=== PATIENT | female | born 1995 | race Caucasian/White ===

== ENCOUNTER 2020-07-08 11:29 | Outpatient (CLI) | payer OTHER, SELFPAY ==
[2020-07-10 16:31] LABS: Hepatitis C Viral RNA PCR <15 IU/mL
== END 2020-07-08 11:30 | disposition home or self-care (01) ==
PROVIDERS: Visit Provider Obstetrics & Gynecology
DX: Z34.92 Encounter for supervision of normal pregnancy, unspecified, second trimester (principal); Z3A.27 27 weeks gestation of pregnancy
CPT/HCPCS: 36415; 87522

== ENCOUNTER 2020-08-05 11:27 | Outpatient (CLI) | payer OTHER, SELFPAY ==
[2020-08-07 16:03] LABS: Hepatitis C RNA, Quant PCR <15 IU/mL
== END 2020-08-05 11:28 | disposition home or self-care (01) ==
LOC: ANHLAB 11:28
PROVIDERS: Visit Provider Obstetrics & Gynecology
DX: R76.8 Other specified abnormal immunological findings in serum (principal)
CPT/HCPCS: 36415; 87522

== ENCOUNTER 2020-08-26 10:43 | Inpatient (IN) | payer OTHER, SELFPAY ==
[2020-08-26] VITALS (68 sets, daily range): BP systolic 120–160; BP diastolic 66–133; PULSE 75–197; RESP 15–20; TEMP 36.4–36.6; O2SAT 97–100; BMI 34.0
--- NOTE | 2020-08-26 10:27 | WPDANESEPP ---
Anes - Eval Pre Procedure Procedure: Operation Date: 09/15/20 09:00 Proposed Procedures p Repeat Section - Miki Blakely MD Date/Time: 08/26/20 10:27 Surgeon: Reddy Preop Diagnosis: Oligohydramnios Pre Op Diagnosis: C Section Patient Data Age: 25 Gender: F Height: Weight: Allergies Allergy/AdvReac Type Severity Reaction Status Date / Time No Known Allergies Allergy Verified 08/24/20 10:49 Home Medications Medication Instructions Recorded Confirmed Type prenat.vits,nicky,aqg-febj-jgjjx 1 tablet PO DAILY 02/24/20 08/19/20 History aspirin 81 mg chewable tablet 81 mg PO DAILY 04/27/20 08/19/20 History Patient hx anesthesia problems: none Family hx anesthesia problems: none PMFSH Past Medical History Medical History Hx of drug abuse Oligohydramnios Surgical History Surgical History History of section Previous section Family History Family History Father Diabetes mellitus Pre-diabetic Grandparent Cerebrovascular accident Father Hypertension Mother Migraines Seizures Social History Social History Smoking status: Never smoker Smoking end date: 10/02/18 Substance use: never Substance use type: former substance user and marijuana Gender identity (if verbalized by the patient): Female Spiritual care concerns: No Exam Day of Procedure 08/26/20 10:27 Patient weight: overweight Heart: regular rate and rhythm Lungs: clear to auscultation Airway: Mallampati scale class II Neurological: alert and oriented
[2020-08-26 12:20] LABS: Basophils Percent Auto 0.2 % (0.2-1.2); Eosinophils Absolute Auto 0.2 K/mm3 (0-0.3); Eosinophils Percent Auto 1.4 % (0-4.4); Hematocrit 38.1 % (37.0-47.0); Hemoglobin 12.8 g/dL (12.0-15.0); Immature Granulocyte Absolute 0.18 K/mm3 (0.00-0.031); Immature Granulocyte Percent A 1.5 % (0-0.5); Lymphocytes Absolute Auto 1.41 K/mm3 (0.9-3.2); Lymphocytes Percent Auto 11.8 % (18.3-44.2); Mean Corpuscular HGB Conc 33.6 g/dl (32-36); Mean Corpuscular Hemoglobin 31.2 pg (26-34); Mean Corpuscular Volume 92.9 fl (80-100); Mean Platelet Volume 10.2 fl (7.4-10.4); Monocytes Absolute Auto 0.8 K/mm3 (0.1-0.6); Monocytes Percent Auto 6.3 % (2.6-8.5); Neutrophils Absolute Auto 9.4 K/mm3 (1.3-6.7); Neutrophils Percent Auto 78.8 % (45.5-73.1); Platelet Count Result 183 k/mm3 (150-375); Red Cell Distribution Width 13.2 % (11.5-14.5); White Blood Count 11.9 K/mm3 (4.5-10.0)
--- NOTE | 2020-08-26 12:26 | PM.IMHP ---
H&P: HPI History of Present Illness Date/Time: 08/26/20 12:26 Chief Complaint: Oligohydramnios Narrative: Rissa Holguin is a 25 year old female at 37 1 day with oligohydramnios. Prior cesearean section. Recommended for delivery due to oligohydramnios. PNC significant for oligohyramnios at 08/12/20 which had ultrasound for size less than dates. Her subsequent ultrasound was normal LAURA on 08/19/20. Today she was getting the surveillance testing due to history of oligo and was found to be oligohydramnios and recommended for delivery. History positive hep c ab, neg for C antibody first and third trimester. Short interval . History of gestational hypertension with prior . She was on baby aspirin until 36 weeks. No gestational hypertension during this . Labs reveiwed. GBS neg. She was previously scheduled for repeat ceserean section which she wanted at 40 weeks. Review of Systems Review of Systems: All systems reviewed & are unremarkable except as noted in HPI and below Constitutional: Constitutional: Reports no additional constitutional complaints and Denies headache(s) Eyes: Eyes: Denies spots in vision ENT: Reports system reviewed and no additional complaints, except as documented and Denies headache(s) Cardiovascular: Cardiovascular: Denies chest pain and Denies dyspnea Respiratory: Respiratory: Denies dyspnea Gastrointestinal: Gastrointestinal: Reports no additional gastrointestinal complaints Genitourinary: Genitourinary: Reports amenorrhea Musculoskeletal: Musculoskeletal: Reports no additional musculoskeletal complaints Integumentary/Breasts: Skin/Breast: Denies breast mass and Denies rash Neurologic: Denies headache(s) Psychiatric: Psychiatric: Reports no additional psychiatric complaints [facility] Past Medical History Medical History Hx of drug abuse Oligohydramnios Surgical History Surgical History History of section Previous section Family History Family History Father Diabetes mellitus Pre-diabetic Grandparent Cerebrovascular accident Father Hypertension Mother Migraines Seizures Social History Social History Smoking status: Former smoker Tobacco type: cigarettes Second hand tobacco smoke exposure: No Smoking end date: 10/02/18 Substance use: never Substance use type: former substance user and marijuana Gender identity (if verbalized by the patient): Female Spiritual care concerns: No Meds Home Medications and Allergies Home Medications Medication Instructions Recorded Confirmed Type prenat.vits,nicky,dnx-vwvf-vvjhq 1 tablet PO DAILY 02/24/20 08/19/20 History aspirin 81 mg chewable tablet 81 mg PO DAILY 04/27/20 08/19/20 History Allergies Allergy/AdvReac Type Severity Reaction Status Date / Time No Known Allergies Allergy Verified 08/24/20 10:49 Vital Signs Vital Signs - 24 hr 08/26/20 10:54 08/26/20 10:55 08/26/20 10:59 Pulse Rate 115 H Blood Pressure 128/85 Pulse Oximetry 99 98 08/26/20 11:01 08/26/20 11:04 08/26/20 11:09 Pulse Rate 101 H Blood Pressure 124/83 Pulse Oximetry 98 99 08/26/20 11:14 08/26/20 11:16 Pulse Rate 120 H Blood Pressure 133/87 Pulse Oximetry 100 Exam Const: General: no acute distress Eyes: General: appearance normal, both eyes and all related structures Resp: Effort & Inspection: normal respiratory effort Cardio: Rate: regular rate GI: Other: Gravid no fundal tenderness no right upper quadrant pain Skin: General skin exam: no rashes or lesions noted Neuro: Cognition (Neuro): normal cognition Extrem: General: normal to inspection Psych: Mental Status: mental status grossly normal H&P: Resul
--- NOTE | 2020-08-26 12:28 | WPDHPUPDATE1 ---
History and Physical Update Update Date/Time: 08/26/20 12:28 History and Physical has been reviewed, including an updated exam of the patient. There are NO changes in the patient's condition. Risks, benefits, and alternatives have been discussed and questions answered. Patient agrees to proceed with procedure.
[2020-08-26] MEDS: ceFAZolin 2 GM/D5W 50 ML 2 GM/50 ML BAG IVPB (12:35)
[2020-08-26] MEDS: OXYTOCIN 30 UNITS/NS 500 ML 30 UNITS/500 ML BAG 125 UNITS IV CONT (15:06)
[2020-08-26] MEDS: KETOROLAC 30 MG/ML VIAL (*BKC) IV PUSH (15:59)
--- NOTE | 2020-08-26 16:30 | OBPPTRN ---
Patient transferred to post room # 281 via stretcher and transferred to bed via maxi air without difficulty. Support person present. Oriented to unit, room, information board, rooming in, admission packet and security measures. Patient verbalizes understanding. PT introductions made and plan of care discussed per post op c section, pain management, breast feeding and daily care activities. Welcome packet reviewed and discussed. no barriers to learning present. both fob and pt were recipients of the instructions. PT received instructions via discussion and one to one instructions.
--- NOTE | 2020-08-26 16:56 | PM.PROC ---
Procedure Note - Detailed Date of procedure: 08/26/20 Pre-op diagnosis: C Section 1. Oligohydramnios 2. Elective repeat cesearean section. Post-op diagnosis: same Procedure performed: Repeat low transverse cesearean section Description of procedure: After informed consent was obtained patient was taken to the operating room and adequate spinal anesthesia was administered. She was placed in supine position and prepped and draped in sterile fashion. heart tones were auscultated prior to sterile draping. Attention was turned to the abdomen and a Pfannenstiel skin incision was made along her prior Pfannenstiel scar. The subcutaneous tissue was dissected with scalpel and cautery. The fascia was incised in the midline stented bilaterally with Kenyon scissors. The fascia was from rectus muscle superiorly and inferiorly bluntly and sharply. Scar tissue of the abdominal muscles to the fascia was lysed with Kenyon scissors. The midline was identified the midline was entered and the peritoneum was entered with metzenbaum scissors. The pelvic organs were visualized. The lower uterine segment and vesico-uterine peritoneum was visualized. The lower uterine segment was noted to be thin. It was intact. A bladder was dissected from the lower uterine segment. A low-transverse uterine incision was made and was extended bluntly. The amniotic cavity was entered. Clear fluid was noted. The incision was extended bluntly and the head was delivered and the rest the infant was delivered. There was noted to be a loose nuchal cord, manually reduced. The was vigorously crying upon delivery. The cord was doubly clamped and cut and the infant was handed to nursery staff in attendance. Cord segment was obtained for cord gases. Cord blood was obtained. The placenta was removed manually. The uterine cavity was sponge curetted. The uterus was noted to have good tone. The uterus was exteriorized the incision of the uterus was closed in a running locking fashion with 0 Vicryl and a 2nd umbricating stitch of 0 Vicryl. Hemostasis was noted. The posterior cul-de-sac was irrigated. Uterus was placed back into the abdomen. The paracolic gutters were irrigated the uterine incision was inspected again and noted to be hemostatic. A thick band of scar tissue was noted on the right mid uterus to adominal wall and this was cauterized from the abdominal wall. Hemostasis noted. Interceed adhesion barrier was placed at the lower uterine segment and anterior uterus. The omentum was placed over the site. The peritoneum was approximated in the midline with several sutures of [id number]-[id number] of 3 O Vicryl. The fascia was closed in a running fashion with 0 Vicryl with 2 sutures. Hemostasis was noted. The subcutaneous tissue was irrigated. The skin incision was closed with 4 O Vicryl on a Michael needle. Dermabond was placed. Hemostasis was noted. The uterus was firm at -1 umbilicus. The EBL was 650 cc. Sponge count was correct x3. The patient tolerated procedure well and was taken to recovery in stable condition. Anesthesia: spinal Surgeon: Miki Blakely MD Urine output (mL): 100 Drains: No Packing: No Pathology: none sent Complications: No immediate complications Condition: stable Disposition: floor (Recovery) Findings: male infant 6lbs 1oz, normal uterus fallopian tubes and ovaries.
[2020-08-26] MEDS: SIMETHICONE 80 MG TAB.CHEW PO (20:41)
[2020-08-26] MEDS: HYDROcodone/acetaminophen (*CRX) 5-325 MG TABLET 1 TAB PO (20:42)
[2020-08-26] MEDS: IBUPROFEN 600 MG TABLET PO (20:43)
[2020-08-27] VITALS: BP 125/64; PULSE 97; RESP 20; TEMP 36.8; O2SAT 98
[2020-08-27] MEDS: IBUPROFEN 600 MG TABLET PO ×3 (03:04→18:01)
[2020-08-27] MEDS: HYDROcodone/acetaminophen (*CRX) 5-325 MG TABLET 1 TAB PO ×4 (03:04→18:01)
[2020-08-27 03:26] VITALS: BP 111/63; PULSE 84; RESP 18; TEMP 36.6; O2SAT 99
[2020-08-27 03:29] VITALS: RESP 18; O2SAT 99
[2020-08-27 05:27] LABS: Basophils Percent Auto 0.3 % (0.2-1.2); Eosinophils Absolute Auto 0.2 K/mm3 (0-0.3); Eosinophils Percent Auto 2.2 % (0-4.4); Hematocrit 30.8 % (37.0-47.0); Hemoglobin 10.3 g/dL (12.0-15.0); Immature Granulocyte Absolute 0.15 K/mm3 (0.00-0.031); Immature Granulocyte Percent A 1.4 % (0-0.5); Lymphocytes Absolute Auto 1.92 K/mm3 (0.9-3.2); Lymphocytes Percent Auto 17.5 % (18.3-44.2); Mean Corpuscular HGB Conc 33.4 g/dl (32-36); Mean Corpuscular Hemoglobin 30.9 pg (26-34); Mean Corpuscular Volume 92.5 fl (80-100); Mean Platelet Volume 10.6 fl (7.4-10.4); Monocytes Percent Auto 8.7 % (2.6-8.5); Neutrophils Absolute Auto 7.7 K/mm3 (1.3-6.7); Neutrophils Percent Auto 69.9 % (45.5-73.1); Platelet Count Result 156 k/mm3 (150-375); Red Blood Count 3.33 M/mm3 (4.2-5.4); Red Cell Distribution Width 13.2 % (11.5-14.5)
[2020-08-27 06:40] VITALS: BP 118/77; PULSE 87; RESP 16; TEMP 36.3; O2SAT 96
[2020-08-27 06:50] LABS: Rapid Plasma Reagin Non-Reactive (NonReactive)
[2020-08-27] MEDS: DOCUSATE SODIUM 100 MG CAPSULE PO ×2 (07:00→18:01)
[2020-08-27] MEDS: MULTIVIT/MIN/PREN/FOL AC/IRON TABLET 1 TAB PO (07:01)
--- NOTE | 2020-08-27 09:10 | PC.NURSE ---
Mother called out for assist with feeding. Consulted with patient, reports has been sleepy with weak attempts and supplementation each feeding. Infant is 37 weeks, discussed how early may be sleepy the first few days. Mother states she breastfed first child without issues. Reviewed infant feeding cues, frequencies, duration of feedings, feeding elimination flow sheet, and signs of adequate intake. Demonstrated stimulation techniques to wake for feeding. Assisted with to breast. Reviewed positioning/alignment in cross cradle, holding breast in U hold and guided asymmetrical latch on. Infant was able to latch correctly within a few attempts. Infant nursed eagerly, with steady draws and frequent swallowing noted. Reviewed signs of a correct latch, effective nursing and suck swallow ratio. was able to maintain latch. Mother reported tenderness at times, infant had slipped to shallow latch. Demonstrated how to adjust latch more deeply while feeding. Mother quickly reports she can feel is latched more deeply and has minimal tenderness. Suggested to stimulate infant while feeding to keep awake and nursing effectively for increased stimulation and increased intake. Instructed mother to call out for RN assistance if she is unable to latch infant for feeding or she has discomfort with nursing. Instructed feeding should be initiated three hours from start of last feeding or if feeding cues are noted before. Mother voiced understanding of information shared.
--- NOTE | 2020-08-27 09:39 | P.PNOB_ITS ---
OB - PN: Subj Subjective Date/time seen: 08/27/20 09:39 She states adequate pain control. Decreasing lochia. She has ambulated to restroom without problems. Tolerating regular diet this morning. No leg pain. OB - PN: Obj Data Labs CBC & Chem 7: 08/27/20 04:00 Labs: Laboratory Results - last 24 hr 08/26/20 08/26/20 08/26/20 11:59 11:59 11:59 WBC 11.9 H RBC 4.10 L Hgb 12.8 Hct 38.1 MCV 92.9 MCH 31.2 MCHC 33.6 RDW 13.2 Plt Count 183 MPV 10.2 Immature Gran % (Auto) 1.5 H Neut % (Auto) 78.8 H Lymph % (Auto) 11.8 L [place] % (Auto) 6.3 Eos % (Auto) 1.4 Baso % (Auto) 0.2 Lymph # (Auto) 1.41 [place] # (Auto) 0.8 H Eos # (Auto) 0.2 Baso # (Auto) 0.0 Abs Immat Gran (auto) 0.18 H Absolute Neuts (auto) 9.4 H Absolute Nucleated RBC 0.0 Nucleated RBC % 0.0 RPR Non-reactive Blood Type O Positive Antibody Screen Negative 08/27/20 04:00 WBC 11.0 H RBC 3.33 L Hgb 10.3 L Hct 30.8 L MCV 92.5 MCH 30.9 MCHC 33.4 RDW 13.2 Plt Count 156 MPV 10.6 H Immature Gran % (Auto) 1.4 H Neut % (Auto) 69.9 Lymph % (Auto) 17.5 L [place] % (Auto) 8.7 H Eos % (Auto) 2.2 Baso % (Auto) 0.3 Lymph # (Auto) 1.92 Edmonson # (Auto) 1.0 H Eos # (Auto) 0.2 Baso # (Auto) 0.0 Abs Immat Gran (auto) 0.15 H Absolute Neuts (auto) 7.7 H Absolute Nucleated RBC 0.0 Nucleated RBC % 0.0 RPR Blood Type Antibody Screen OB - PN A/P Assessment and Plan (1) Status post section: Code(s): Z98.891 - History of uterine scar from previous surgery Status: Acute Assessment and Plan: She is doing well. Encourage ambulation. Routine post op care. Time Spent With Patient Time: Total time spent is greater than 50% in coordination of care (as documented) at patient's floor/unit and/or counseling patient: Exam Const: General: comfortable and no acute distress ( baby) Eyes: General: appearance normal, both eyes and all related structures Resp: Effort & Inspection: normal respiratory effort GI: Other: fundus below umbilicus, dressing clean and dry Extrem: General: normal to inspection Psych: Mental Status: mental status grossly normal Affect: normal affect
--- NOTE | 2020-08-27 09:43 | WPDANLDPN2 ---
Anes-Prog Note L&D Date/Time: 08/27/20 09:43 Comfortable throughout: section Neuraxial method: spinal Epidural/Spinal procedure site: clean & non-tender Neuro status: Neuro function grossly intact. Cardiovascular status: normal Respiratory status: normal Airway patency: baseline Mental status: baseline Post-Op hydration status: normal Vital Signs: Last Vital Signs Temp 36.3 C L 08/27/20 06:40 Pulse 87 08/27/20 06:40 Resp 16 08/27/20 06:40 BP 118/77 08/27/20 06:40 Pulse Ox 96 08/27/20 06:40 Pain score (VAS): 0 I/O: Intake & Output 08/26/20 08/27/20 08/27/20 23:59 07:59 15:59 Intake Total 740 1200 Output Total 450 950 Balance 290 250 Post-procedural complaints: none Patient feedback: Patient satisfied with anesthetic care.
--- NOTE | 2020-08-27 09:43 | WPDANLDNPN2 ---
Anes-Prog Note L&D-Neuraxial Date/Time: 08/27/20 09:43 Neuraxial medications: intrathecal PF morphine Opiod-related complaints: none Patient feedback: Patient satisfied with post-operative pain management.
[2020-08-27 12:05] VITALS: BP 125/77; PULSE 102; RESP 18; TEMP 37.4; O2SAT 96
--- NOTE | 2020-08-27 17:18 | PC.NURSE ---
Consult with pt., mother reports has had inconsistent feedings today with some supplementation. Mother is attempting upon entering, is sleepy and not waking for latch. Demonstrated stimulation techniques to wake, infant remains sleepy with weak attempts. No successful latch obtained with 15 minute attempt. Suggested mother initiate pumping to stimulate milk supply and offer EBM/formula after each feeding infant does not have an effective .
[2020-08-27 21:00] VITALS: BP 121/80; PULSE 104; RESP 18; TEMP 36.9; O2SAT 96
[2020-08-28] MEDS: HYDROcodone/acetaminophen (*CRX) 5-325 MG TABLET 1 TAB PO ×4 (00:03→20:02)
[2020-08-28] MEDS: IBUPROFEN 600 MG TABLET PO ×3 (00:04→20:01)
[2020-08-28 08:40] VITALS: BP 121/84; PULSE 96; RESP 18; TEMP 36.9; O2SAT 97
[2020-08-28] MEDS: MULTIVIT/MIN/PREN/FOL AC/IRON TABLET 1 TAB PO (09:27)
[2020-08-28] MEDS: DOCUSATE SODIUM 100 MG CAPSULE PO (09:28)
[2020-08-28] MEDS: SIMETHICONE 80 MG TAB.CHEW PO (09:29)
--- NOTE | 2020-08-28 11:19 | PM.OBPNVD ---
OB - PN: Subj Subjective Date/time seen: 08/28/20 11:19 She states adequate pain control. Mild lochia. She is and supplementing well. No leg pain. Tolerating regular diet. Has ambulated in room without problems. She would like to go home today. Positive flatus. OB - PN: Obj Data Labs CBC & Chem 7: 08/27/20 04:00 OB - PN A/P Assessment and Plan (1) Status post section: Code(s): Z98.891 - History of uterine scar from previous surgery Status: Acute Assessment and Plan: POD2 s/p repeat cesearean. She is doing well. Will allow to go home if baby is able to be discharged. Discharge precautions discussed. Time Spent With Patient Time: Total time spent is greater than 50% in coordination of care (as documented) at patient's floor/unit and/or counseling patient: Exam Const: General: comfortable and no acute distress Eyes: General: appearance normal, both eyes and all related structures Resp: Effort & Inspection: normal respiratory effort GI: Other: soft, uterus appropriate tenderness, -3umb, firm, incision intact no drainage or erythema Extrem: General: normal to inspection and no calf tenderness bilaterally Psych: Mental Status: mental status grossly normal Affect: normal affect
--- NOTE | 2020-08-28 11:27 | PM.OBDSVD ---
DS: Admitting Diagnosis Admitting Diagnosis Admitting Diagnosis: Oligohydramnios DS: Discharge Diagnosis Discharge Diagnosis (1) Oligohydramnios: Code(s): O41.00X0 - Oligohydramnios, unspecified trimester, not applicable or unspecified Status: Acute (2) Previous section: Code(s): Z98.891 - History of uterine scar from previous surgery Status: Acute OB - DS: Summary OB Procedures : NST and Ultrasound OB Procedures Intrapartum: low cervical, transverse OB Procedures: : None Peripartum Data Delivery Method: Section Procedures: Procedures Operation Date: 08/26/20 11:45 Actual Procedures Side Surgeon p Section Miki Blakely MD complications: none Status at Discharge Functional status at discharge: independent ambulation Overall status at discharge: patient is progressing back to baseline Time Spent with Patient Time attestation: Total time spent providing and/or coordinating discharge services: Specific discharge activities: Patient was admitted on 08/26/20 after diagnosis of oligohydramnios at term. She has had a previous csection and planned for repeat ceserean section at 40 weeks. She was recommended for induction today due to term and oligohydramnios. She underwent an uncomplicated repeat cesearean section. Post operatively she did well. Post op h/h 04/23. She had asymptomatic post operative anemia. She was taking vitamins and iron supplementation. Incision was healing well in hospital. She was ambulating well on post op day 1 and tolerating regular food and passage of flatus. Her lochia was light since post op day. She requested discharge to home on post op day 2 if baby was discharged. Discharge precautions discussed. Exam Const: General: comfortable and no acute distress Resp: Effort & Inspection: normal respiratory effort GI: Inspection: other (incision intact no drainage) Extrem: General: normal to inspection and no calf tenderness bilaterally Psych: Mental Status: mental status grossly normal Affect: normal affect DS: Data Data Completed and Pending Pending studies at discharge: Pending at discharge 08/26/20 13:08 Surgical [PTH] Routine Procedures/Treatments: 1. Repeat low transverse cesearean section Discharge Plan Discharge Attending physician on discharge: Miki Blakely Consulting providers: Joel Stanley Discharging Clinician: Miki Blakely Patient Disposition: Home, Self-Care Activity: no driving and pelvic rest Diet: regular Wound Care Instructions: follow printed instructions and incision open to air Discharge Instructions: instructions. May take over the counter Ibuprofen 600mg every six hours as needed for pain. May take Miralax daily until regular bowel movements. Take over the counter SloFe once a day. Patient Instructions: Antibiotic Form Stand Alone Forms: General Discharge Information Follow-up/Referrals: Miki Blakely MD [Physician] - 2 Weeks Discharge Medications: New hydrocodone-acetaminophen 5-325 mg Tablet 1 tablet PO Q3H PRN (Reason: Moderate Pain (4-6)) Qty: 25 RF: 0 Discontinued prenat.vits,nicky,sxj-vfbj-sgcnp Tablet 1 tablet PO DAILY RF: 0 aspirin 81 mg tablet,chewable 81 mg PO DAILY RF: 0 Date of admission: 08/26/20 10:43 Primary Care Provider: PHYSICIAN,EXCEPTIONAL STUDENT EDUCATION TEACHER Admitting Provider: Miki Blakely Attending physician on admission: Miki Blakely Condition: Stable
[2020-08-28 22:15] VITALS: BP 127/79; PULSE 86; RESP 18; TEMP 36.6; O2SAT 97
[2020-08-29] MEDS: IBUPROFEN 600 MG TABLET PO ×2 (03:00→09:24)
[2020-08-29] MEDS: HYDROcodone/acetaminophen (*CRX) 5-325 MG TABLET 1 TAB PO ×2 (03:00→09:25)
--- NOTE | 2020-08-29 07:38 | PC.NURSE ---
08/28/2020 at 1999 Patient viewed the discharge video Mother & Baby Care, The First Two Weeks . Patient was given the opportunity and encouraged to ask questions. Patient verbalized understanding of information shared and has been given the mother/baby guide for home reference.
--- NOTE | 2020-08-29 08:32 | PM.OBPNVD ---
OB - PN: Subj Subjective Date/time seen: 08/29/20 08:32 She has adequate pain control. Mild lochia. Breast and bottle feeding well. Positive flatus. Ambulating well. No leg pain. OB - PN: Obj Data Labs CBC & Chem 7: 08/27/20 04:00 OB - PN A/P Assessment and Plan (1) Previous section: Code(s): Z98.891 - History of uterine scar from previous surgery Status: Acute Assessment and Plan: POD3. She is doing well. Discharge today. Discharge precautions discussed. Time Spent With Patient Time: Total time spent is greater than 50% in coordination of care (as documented) at patient's floor/unit and/or counseling patient: Exam Const: General: comfortable and no acute distress Resp: Effort & Inspection: normal respiratory effort GI: Other: uterus below umbilicus, firm, incision intact no drainage erythema or induration Extrem: General: normal to inspection and no calf tenderness bilaterally Psych: Mental Status: mental status grossly normal Affect: normal affect
[2020-08-29] MEDS: MULTIVIT/MIN/PREN/FOL AC/IRON TABLET 1 TAB PO (09:23)
[2020-08-29] MEDS: DOCUSATE SODIUM 100 MG CAPSULE PO (09:24)
[2020-08-29 09:25] VITALS: BP 123/80; PULSE 97; RESP 16; TEMP 37; O2SAT 95
[2020-09-01 10:02] VITALS: BP 132/77; PULSE 81; RESP 16; TEMP 36.9; O2SAT 99
== END 2020-08-29 14:52 | disposition home or self-care (01) | DRG 787 ==
LOC: ANHLDR 11:36 → ANHOB2 16:36
PROVIDERS: Admitting Provider Obstetrics & Gynecology; Visit Provider Obstetrics & Gynecology
DX: O34.211 Maternal care for low transverse scar from previous cesarean delivery (principal); O41.03X0 Oligohydramnios, third trimester, not applicable or unspecified; O69.81X0 Labor and delivery complicated by cord around neck, without compression, not applicable or unspecified; O99.02 Anemia complicating childbirth; D64.89 Other specified anemias; Z3A.37 37 weeks gestation of pregnancy; Z37.0 Single live birth; Z87.891 Personal history of nicotine dependence
CPT/HCPCS: 36415; 85025; 86592; 86850; 86900; 86901; 88307; A9270; J0690; J1885; J2274; J2370; J2405; J2590; J3010